=== PATIENT | female | born 1935 | race Two or more races ===

== ENCOUNTER 2018-10-29 10:42 | Emergency (ER) | payer MEDICARE, OTHER ==
[~2018-10-29] VITALS: Ht 144.8 cm; Wt 60.5 kg
[2018-10-29] MEDS ORDERED: VITAD1000 PO (10:50)
[2018-10-29] MEDS ORDERED: HYDR-4061 PO (10:50)
[2018-10-29] MEDS ORDERED: ATOR20TA86 PO (10:50)
[2018-10-29] MEDS ORDERED: ISOS5TAB5 PO (10:50)
[2018-10-29] MEDS ORDERED: GLIM4 PO (10:50)
[2018-10-29] MEDS ORDERED: INSU100I21 IM (10:50)
[2018-10-29] MEDS ORDERED: FERR-89 PO (10:50)
[2018-10-29] MEDS ORDERED: FURO20 PO (10:50)
[2018-10-29] MEDS ORDERED: GABA-531 PO (10:50)
[2018-10-29] MEDS ORDERED: SODI650T PO (10:50)
[2018-10-29 10:59] LABS: GLUCOSE,POINT OF CARE 203 MG/DL (70-110)
[2018-10-29] MEDS ORDERED: ACETAMINOPHEN 500 MG TABLET PO ONE (11:30)
[2018-10-29] MEDS ORDERED: BACITRACIN 0.9 GM PACKET OINTMENT TP ONE (11:30)
[2018-10-29 11:33] LABS: BASOPHILS % (AUTO) 0.6 % (0.0-2.0); HEMOGLOBIN 8.4 g/dL (12.0-16.0); LYMPHOCYTES # (AUTO) 1.5 K/uL (1.0-4.8); LYMPHOCYTES % (AUTO) 19.2 % (22.0-44.0); MEAN CORPUSCULAR HEMOGLOBIN 27.3 pg (26.0-34.0); MEAN CORPUSCULAR HGB CONC 32.3 G/dL (31.0-37.0); MEAN CORPUSCULAR VOLUME 84 fL (80-100); MONOCYTES # (AUTO) 0.5 K/uL (0.1-1.0); MONOCYTES % (AUTO) 6.8 % (2.0-9.0); NEUTROPHILS # (AUTO) 5.5 K/uL (1.8-7.7); NEUTROPHILS % (AUTO) 72.4 % (40.0-70.0); PLATELET COUNT (AUTO) 280 K/uL (150-450); RED BLOOD CELL COUNT(AUTO) 3.08 MIL/uL (4.00-5.20); RED CELL DISTRIBUTION WIDTH 17.4 % (11.5-14.5)
[2018-10-29 11:55] LABS: CALCIUM, TOTAL 8.8 mg/dL (8.8-10.5); CREATININE 1.24 mg/dL (0.60-1.30); POTASSIUM 5.5 mmol/L (3.5-5.1)
[2018-10-29 14:29] VITALS: BP 147/73
== END 2018-10-29 14:34 | disposition home or self-care (01) ==
LOC: EMS 10:43
DX: S63.610A Unspecified sprain of right index finger, initial encounter (principal); S00.83XA Contusion of other part of head, initial encounter; S50.312A Abrasion of left elbow, initial encounter; S00.31XA Abrasion of nose, initial encounter; I87.2 Venous insufficiency (chronic) (peripheral); E11.65 Type 2 diabetes mellitus with hyperglycemia; E11.22 Type 2 diabetes mellitus with diabetic chronic kidney disease; I12.9 Hypertensive chronic kidney disease with stage 1 through stage 4 chronic kidney disease, or unspecified chronic kidney disease; N18.9 Chronic kidney disease, unspecified; D63.1 Anemia in chronic kidney disease; M25.562 Pain in left knee; M25.561 Pain in right knee; M54.9 Dorsalgia, unspecified; E11.40 Type 2 diabetes mellitus with diabetic neuropathy, unspecified; E78.00 Pure hypercholesterolemia, unspecified; Z79.899 Other long term (current) drug therapy; W01.0XXA Fall on same level from slipping, tripping and stumbling without subsequent striking against object, initial encounter; Y93.89 Activity, other specified; Y92.89 Other specified places as the place of occurrence of the external cause; Y99.8 Other external cause status
CPT/HCPCS: 70450

== ENCOUNTER 2019-05-08 13:38 | Inpatient (IN) | payer MEDICARE, OTHER ==
[~2019-05-08] VITALS: Ht 152.4 cm; Wt 61.0 kg
[~2019-05-08 13:38] MED LIST: ATOR20TA86 PO; CHOL100018 PO; FERR-89 PO; FURO20 PO; GABA-531 PO; GLIM4 PO; HYDR-4061 PO; INSU100I21 SQ; ISOS5TAB5 PO; SODI650T PO
[2019-05-08] MEDS ORDERED: B CO1CAP6 PO (13:46)
[2019-05-08] MEDS ORDERED: ESOM20CA31 PO (13:50)
[2019-05-08] MEDS ORDERED: TRIA15CR49 TP (13:50)
[2019-05-08] MEDS ORDERED: LABE100T8 PO (13:50)
[2019-05-08] MEDS ORDERED: DOCU-275 PO (13:50)
[2019-05-08 14:05] LABS: GLUCOSE,POINT OF CARE > 600 MG/DL (70-110)
[2019-05-08] MEDS ORDERED: 0.9% SODIUM CHLORIDE 10 ML SYRINGE IVP PRN (14:15)
[2019-05-08] MEDS ORDERED: CefTRIAXone 1 GM/DEXTROSE 50 ML IV ONE (14:15)
[2019-05-08] MEDS ORDERED: AZITHROMYCIN 500 MG/NS 250 ML IV ONE (14:15)
[2019-05-08] MEDS ORDERED: CHOL100018 PO (14:18)
[2019-05-08] MEDS ORDERED: ISOS10TA16 PO (14:18)
[2019-05-08] MEDS ORDERED: ALBUTEROL SULFATE 5 MG/ML 20 ML NEB SOLN [BULK] NEB ONE (14:30)
[2019-05-08] MEDS ORDERED: IPRATROPIUM BROMIDE 0.5 MG/2.5 ML NEB SOLUTION NEB ONE (14:30)
[2019-05-08] MEDS ORDERED: NITROGLYCERIN 50 MG/D5% WATER 250 ML IV PRN (14:45)
[2019-05-08] MEDS ORDERED: FUROSEMIDE 40 MG/4 ML VIAL IVP ONE (14:45)
[2019-05-08 14:49] LABS: BASOPHILS % (AUTO) 0.4 % (0.0-2.0); EOSINOPHILS % (AUTO) 0 % (1.0-6.0); HEMATOCRIT 35.3 % (36-46); LYMPHOCYTES # (AUTO) 1.6 K/uL (1.0-4.8); LYMPHOCYTES % (AUTO) 11.4 % (22.0-44.0); MEAN CORPUSCULAR HGB CONC 31.2 G/dL (31.0-37.0); MEAN CORPUSCULAR VOLUME 90 fL (80-100); MONOCYTES # (AUTO) 0.9 K/uL (0.1-1.0); MONOCYTES % (AUTO) 6.5 % (2.0-9.0); NEUTROPHILS # (AUTO) 11.2 K/uL (1.8-7.7); NEUTROPHILS % (AUTO) 81.7 % (40.0-70.0); PLATELET COUNT (AUTO) 283 K/uL (150-450); RED BLOOD CELL COUNT(AUTO) 3.94 MIL/uL (4.00-5.20); RED CELL DISTRIBUTION WIDTH 14.9 % (11.5-14.5)
[2019-05-08 15:02] LABS: INR 1.1 (0.9-1.1); PROTHROMBIN TIME 10.9 SEC (9.4-11.6)
[2019-05-08 16:28] LABS: APPEARANCE,URINE CLOUDY (CLEAR); BILIRUBIN,URINE NEGATIVE (NEGATIVE); GLUCOSE, URINE (UA) >=1000 mg/dL (NEGATIVE); KETONES,URINE NEGATIVE (NEGATIVE); LEUKOCYTE ESTERASE ,URINE NEGATIVE (NEGATIVE); NITRATE,URINE NEGATIVE (NEGATIVE); OCCULT BLOOD,URINE SMALL (NEGATIVE); PROTEIN,URINE SEE CONFIRM (NEGATIVE)
[2019-05-08 16:29] LABS: SITE, BLOOD GAS LFT RADIAL; SOURCE, BLOOD GAS ARTERIAL
[2019-05-08 16:31] LABS: ABG BASE EXCESS -1.1 mmol/L (-2.0-3.0); ABG CARBOXYHEMOGLOBIN 1.1 % (0.0-1.5); ABG HCO3 23.3 mmol/L (22.0-26.0); ABG METHEMOGLOBIN 0.1 % (0.0-1.5); ABG OXYGEN CONTENT 15.6 mL/dL (15.0-23.0); ABG OXYHEMOGLOBIN 93.8 % (94.0-100.0); ABG PCO2 46 mmHg (35-45); ABG PH 7.343 (7.35-7.450); ABG TOTAL HEMOGLOBIN 11.8 G/dL (12.0-18.0); PO2, ARTERIAL BG 79.4 mmHg (71.0-79.0); TEMPERATURE, FAHRENHEIT, BG 99.4 FAHREN (96.0-98.6)
[2019-05-08 16:31] LABS: ALBUMIN 2.3 g/dL (3.4-5.0); BILIRUBIN,TOTAL 0.4 mg/dL (0.1-1.0); CALCIUM, TOTAL 8.7 mg/dL (8.8-10.5); CREATININE 1.86 mg/dL (0.60-1.30); POTASSIUM 5.4 mmol/L (3.5-5.1); TOTAL PROTEIN, SERUM 7.2 g/dL (6.4-8.2)
[2019-05-08 16:32] LABS: ABG A-A DIFF O2 65.3 mmHg (10-20.0); ABG OXYGEN SATURATION 94.9 % (95.0-98.0); O2 DEVICE,BLOOD GAS BIPAP (ROOM AIR); SPONTANEOUS VT, BG 430 ml
[2019-05-08 16:33] LABS: INSPIRATORY TIME, BG 1 SEC
[2019-05-08 16:43] LABS: SULFOSALICYLIC ACID,URINE 1+ (Negative)
[2019-05-08 16:45] LABS: INFLUENZA TYPE A NEGATIVE FOR TYPE A (NEGATIVE); INFLUENZA TYPE B NEGATIVE FOR TYPE B (NEGATIVE)
[2019-05-08] MEDS ORDERED: INSULIN REGULAR, HUMAN 100 UNITS/ML IVP ONE (16:45)
[2019-05-08] MEDS ORDERED: INSULIN REGULAR, HUMAN 100 UNITS in SODIUM CHLORIDE 0.9% 99 ML IV PRN ×2 (16:45)
[2019-05-08] MEDS ORDERED: SODIUM CHLORIDE 0.9% 1,000 ML IV ONE (16:45)
[2019-05-08 16:47] LABS: AMORPHOUS SEDIMENT,UR Moderate /LPF (None Seen); BACTERIA,URINE None Seen /HPF (None Seen); RBC,URINE 0-2 /HPF (0-2); SQUAMOUS EPITHELIAL CELL,UR Rare /LPF (None Seen); WBC,URINE None Seen /HPF (0-5)
[2019-05-08] MEDS ORDERED: ONDANSETRON HCL 4 MG/2 ML VIAL IVP PRN (17:00)
[2019-05-08] MEDS ORDERED: ACETAMINOPHEN 325 MG TABLET PO PRN (17:00)
[2019-05-08 18:02] LABS: GLUCOSE,POINT OF CARE 532 MG/DL (70-110)
[2019-05-08] MEDS ORDERED: ACETAMINOPHEN 500 MG TABLET PO ONE (18:30)
[2019-05-08 19:12] LABS: GLUCOSE,POINT OF CARE 485 MG/DL (70-110)
[2019-05-08 20:18] LABS: GLUCOSE,POINT OF CARE 417 MG/DL (70-110)
[2019-05-08 21:31] LABS: GLUCOSE,POINT OF CARE 363 MG/DL (70-110)
[2019-05-08 22:32] LABS: GLUCOSE,POINT OF CARE 311 MG/DL (70-110)
[2019-05-08] MEDS ORDERED: OxyCODONE HCL/ACETAMINOPHEN 5-325 MG TABLET PO PRN (23:00)
[2019-05-08 23:29] LABS: GLUCOSE,POINT OF CARE 229 MG/DL (70-110)
[2019-05-09 00:27] LABS: GLUCOSE,POINT OF CARE 230 MG/DL (70-110)
[2019-05-09 01:25] LABS: GLUCOSE,POINT OF CARE 171 MG/DL (70-110)
[2019-05-09] MEDS ORDERED: ONDANSETRON HCL 4 MG/2 ML VIAL IVP PRN (02:30)
[2019-05-09] MEDS ORDERED: OxyCODONE HCL/ACETAMINOPHEN 5-325 MG TABLET PO PRN ×2 (02:30)
[2019-05-09] MEDS ORDERED: MAGNESIUM HYDROXIDE SUSPENSION 30 ML UDCUP PO PRN (02:30)
[2019-05-09] MEDS ORDERED: DEXTROSE 50%-WATER 25 GM/50 ML SYRINGE IVP PRN ×2 (02:30)
[2019-05-09] MEDS ORDERED: 0.9% SODIUM CHLORIDE 10 ML SYRINGE IVP PRN (02:30)
[2019-05-09] MEDS ORDERED: INSULIN LISPRO 100 UNITS/ML SQ PRN (02:30)
[2019-05-09 02:35] LABS: GLUCOSE,POINT OF CARE 177 MG/DL (70-110)
[2019-05-09 03:16] LABS: GLUCOSE,POINT OF CARE 166 MG/DL (70-110)
[2019-05-09] MEDS: HEPARIN SODIUM,PORCINE 5,000 UNITS/ML VIAL SQ SCH ×3 (03:19→21:06)
[2019-05-09 04:24] LABS: GLUCOSE,POINT OF CARE 178 MG/DL (70-110)
[2019-05-09 05:22] LABS: GLUCOSE,POINT OF CARE 179 MG/DL (70-110)
[2019-05-09 06:22] LABS: GLUCOSE,POINT OF CARE 198 MG/DL (70-110)
[2019-05-09 07:33] LABS: GLUCOSE,POINT OF CARE 163 MG/DL (70-110)
[2019-05-09 08:30] LABS: CREATININE 1.6 mg/dL (0.60-1.30); POTASSIUM 4.4 mmol/L (3.5-5.1)
[2019-05-09 08:31] LABS: CALCIUM, TOTAL 8.3 mg/dL (8.8-10.5)
[2019-05-09 08:37] LABS: BILIRUBIN,TOTAL 0.3 mg/dL (0.1-1.0); TOTAL PROTEIN, SERUM 6.5 g/dL (6.4-8.2)
[2019-05-09] MEDS: LABETALOL HCL 100 MG TABLET PO SCH ×2 (08:47→21:06)
[2019-05-09] MEDS: DOCUSATE SODIUM 100 MG CAPSULE PO SCH ×2 (08:47→21:06)
[2019-05-09] MEDS: FAMOTIDINE 10 MG/ML 2 ML VIAL IVP SCH (08:48)
[2019-05-09] MEDS: ISOSORBIDE DINITRATE 10 MG TABLET PO SCH ×2 (08:48→21:06)
[2019-05-09] MEDS: ATORVASTATIN CALCIUM 20 MG TABLET PO SCH (08:48)
[2019-05-09] MEDS ORDERED: FAMOTIDINE 10 MG/ML 2 ML VIAL IVP SCH (09:00)
[2019-05-09] MEDS ORDERED: INSULIN DETEMIR SQ SCH (09:00)
[2019-05-09 09:26] LABS: GLUCOSE,POINT OF CARE 173 MG/DL (70-110)
[2019-05-09 11:09] LABS: SPECIMENTYPE,BODY FLUID PLEURAL
[2019-05-09 11:09] LABS: GLUCOSE,POINT OF CARE 148 MG/DL (70-110)
[2019-05-09 12:21] LABS: GLUCOSE,POINT OF CARE 167 MG/DL (70-110)
[2019-05-09 12:31] LABS: APPEARANCE,SPUN,BODY FLUID CLEAR (CLEAR); APPEARANCE,UNSPUN,BODY FLUID TURBID (CLEAR); COLOR,BODY FLUID YELLOW (LT YELLOW); TOTAL VOLUME,BODY FLUID 1000 mL; WBC, BODY FLUID 2020 /cu. mm.
[2019-05-09 12:32] LABS: BASOPHILS,BODY FLUID 0 %; EOSINOPHILS,BF (ANAL) 0 %; LYMPHOCYTES,BODY FLUID 21 %; MONOCYTES,BODY FLUID 0 %; NEUTROPHILS,BODY FLUID 79 %
[2019-05-09 14:02] LABS: GLUCOSE,POINT OF CARE 172 MG/DL (70-110)
[2019-05-09 14:45] VITALS: BP 152/61
[2019-05-09 16:05] VITALS: BP 152/66
[2019-05-09] MEDS ORDERED: SODIUM CHLORIDE 0.9% 250 ML IV ONE (16:12)
[2019-05-09] MEDS: CefTRIAXone 1 GM/DEXTROSE 50 ML IV SCH (16:26)
[2019-05-09] MEDS: AZITHROMYCIN 250 MG in SODIUM CHLORIDE 0.9% 150 ML IV SCH (17:32)
[2019-05-09] MEDS: INSULIN LISPRO 100 UNITS/ML SQ PRN ×2 (18:33→21:13)
[2019-05-09 19:50] LABS: GLUCOMETER DEV NAME(LOC) 5S.1; GLUCOSE,POINT OF CARE 230 MG/DL (70-110)
[2019-05-10 00:13] VITALS: BP 132/47
[2019-05-10] MEDS: ACETAMINOPHEN 325 MG TABLET PO PRN (02:14)
[2019-05-10 04:43] LABS: GLUCOMETER DEV NAME(LOC) 5S.1; GLUCOSE,POINT OF CARE 206 MG/DL (70-110)
[2019-05-10 04:55] VITALS: BP 144/56
[2019-05-10 06:21] LABS: BASOPHILS % (AUTO) 0.5 % (0.0-2.0); EOSINOPHILS % (AUTO) 0.3 % (1.0-6.0); HEMATOCRIT 31.4 % (36-46); HEMOGLOBIN 10.1 g/dL (12.0-16.0); LYMPHOCYTES # (AUTO) 1.7 K/uL (1.0-4.8); LYMPHOCYTES % (AUTO) 13.4 % (22.0-44.0); MEAN CORPUSCULAR HEMOGLOBIN 27.8 pg (26.0-34.0); MEAN CORPUSCULAR HGB CONC 32.3 G/dL (31.0-37.0); MEAN CORPUSCULAR VOLUME 86 fL (80-100); MONOCYTES # (AUTO) 0.7 K/uL (0.1-1.0); MONOCYTES % (AUTO) 5.2 % (2.0-9.0); NEUTROPHILS # (AUTO) 10.3 K/uL (1.8-7.7); NEUTROPHILS % (AUTO) 80.6 % (40.0-70.0); PLATELET COUNT (AUTO) 290 K/uL (150-450); RED BLOOD CELL COUNT(AUTO) 3.65 MIL/uL (4.00-5.20); RED CELL DISTRIBUTION WIDTH 14.4 % (11.5-14.5)
[2019-05-10 06:29] LABS: CALCIUM, TOTAL 8.3 mg/dL (8.8-10.5); CREATININE 1.53 mg/dL (0.60-1.30); POTASSIUM 4.4 mmol/L (3.5-5.1)
[2019-05-10] MEDS: INSULIN LISPRO 100 UNITS/ML SQ PRN ×4 (06:58→21:40)
[2019-05-10 08:21] VITALS: BP 152/73
[2019-05-10] MEDS: LABETALOL HCL 100 MG TABLET PO SCH ×2 (08:28→20:53)
[2019-05-10] MEDS: FAMOTIDINE 10 MG/ML 2 ML VIAL IVP SCH (08:28)
[2019-05-10] MEDS: DOCUSATE SODIUM 100 MG CAPSULE PO SCH ×2 (08:28→20:53)
[2019-05-10] MEDS: ATORVASTATIN CALCIUM 20 MG TABLET PO SCH (08:28)
[2019-05-10] MEDS: ISOSORBIDE DINITRATE 10 MG TABLET PO SCH ×2 (08:28→20:53)
[2019-05-10] MEDS: HEPARIN SODIUM,PORCINE 5,000 UNITS/ML VIAL SQ SCH ×2 (08:29→20:53)
[2019-05-10 10:34] VITALS: BP 133/47
[2019-05-10 11:52] LABS: GLUCOMETER DEV NAME(LOC) 5S.1; GLUCOSE,POINT OF CARE 203 MG/DL (70-110)
[2019-05-10 15:09] VITALS: BP 153/62
[2019-05-10] MEDS: CefTRIAXone 1 GM/DEXTROSE 50 ML IV SCH (15:27)
[2019-05-10] MEDS: AZITHROMYCIN 250 MG in SODIUM CHLORIDE 0.9% 150 ML IV SCH (16:32)
[2019-05-10 17:39] LABS: GLUCOMETER DEV NAME(LOC) 5N.2; GLUCOSE,POINT OF CARE 250 MG/DL (70-110)
[2019-05-10 17:39] LABS: GLUCOMETER DEV NAME(LOC) 5N.2; GLUCOSE,POINT OF CARE 297 MG/DL (70-110)
[2019-05-10 20:33] VITALS: BP 195/79
[2019-05-10] MEDS: BENZONATATE 100 MG CAPSULE PO SCH (20:53)
[2019-05-11 00:14] VITALS: BP 168/68
[2019-05-11] MEDS: ACETAMINOPHEN 325 MG TABLET PO PRN ×2 (02:30→21:37)
[2019-05-11 06:11] VITALS: BP 190/75
[2019-05-11] MEDS ORDERED: CloNIDine HCL 0.1 MG TABLET PO PRN (06:30)
[2019-05-11] MEDS: INSULIN LISPRO 100 UNITS/ML SQ PRN ×4 (06:42→22:33)
[2019-05-11 08:05] VITALS: BP 162/91
[2019-05-11] MEDS: ISOSORBIDE DINITRATE 10 MG TABLET PO SCH ×2 (08:09→21:30)
[2019-05-11] MEDS: FAMOTIDINE 10 MG/ML 2 ML VIAL IVP SCH (08:09)
[2019-05-11] MEDS: DOCUSATE SODIUM 100 MG CAPSULE PO SCH ×2 (08:09→21:29)
[2019-05-11] MEDS: BENZONATATE 100 MG CAPSULE PO SCH ×3 (08:09→21:30)
[2019-05-11] MEDS: ATORVASTATIN CALCIUM 20 MG TABLET PO SCH (08:09)
[2019-05-11] MEDS: LABETALOL HCL 100 MG TABLET PO SCH ×2 (08:09→21:30)
[2019-05-11] MEDS: HEPARIN SODIUM,PORCINE 5,000 UNITS/ML VIAL SQ SCH ×2 (08:10→21:30)
[2019-05-11] MEDS: GuaiFENesin/D-METHORPHAN [SUGAR-FREE] 200-20MG/10 ML SYRUP UDCUP PO PRN ×3 (11:23→21:37)
[2019-05-11] MEDS: AmLODIPine BESYLATE 5 MG TABLET PO SCH (11:23)
[2019-05-11] MEDS: BUMETANIDE 1 MG TABLET PO SCH ×2 (11:23→21:29)
[2019-05-11 11:31] VITALS: BP 156/66
[2019-05-11 12:55] LABS: GLUCOMETER DEV NAME(LOC) 5N.2; GLUCOSE,POINT OF CARE 229 MG/DL (70-110)
[2019-05-11 12:55] LABS: GLUCOMETER DEV NAME(LOC) 5N.2; GLUCOSE,POINT OF CARE 211 MG/DL (70-110)
[2019-05-11] MEDS: CefTRIAXone 1 GM/DEXTROSE 50 ML IV SCH (13:15)
[2019-05-11] MEDS: AZITHROMYCIN 250 MG in SODIUM CHLORIDE 0.9% 150 ML IV SCH (14:34)
[2019-05-11 15:26] VITALS: BP 146/61
[2019-05-11 18:32] LABS: GLUCOMETER DEV NAME(LOC) 5N.2; GLUCOSE,POINT OF CARE 294 MG/DL (70-110)
[2019-05-11 20:27] LABS: GLUCOMETER DEV NAME(LOC) 5S.1; GLUCOSE,POINT OF CARE 303 MG/DL (70-110)
[2019-05-11 20:50] VITALS: BP 158/83
[2019-05-11 23:14] LABS: GLUCOMETER DEV NAME(LOC) 5N.2; GLUCOSE,POINT OF CARE 231 MG/DL (70-110)
[2019-05-12 00:36] VITALS: BP 111/49
[2019-05-12 04:46] VITALS: BP 154/67
[2019-05-12] MEDS: INSULIN LISPRO 100 UNITS/ML SQ PRN ×4 (06:31→21:41)
[2019-05-12 07:48] VITALS: BP 154/66
[2019-05-12] MEDS: ISOSORBIDE DINITRATE 10 MG TABLET PO SCH ×2 (08:46→21:14)
[2019-05-12] MEDS: DOCUSATE SODIUM 100 MG CAPSULE PO SCH ×2 (08:46→21:15)
[2019-05-12] MEDS: BENZONATATE 100 MG CAPSULE PO SCH ×3 (08:46→21:14)
[2019-05-12] MEDS: LABETALOL HCL 100 MG TABLET PO SCH ×2 (08:46→21:14)
[2019-05-12] MEDS: HEPARIN SODIUM,PORCINE 5,000 UNITS/ML VIAL SQ SCH ×2 (08:46→21:14)
[2019-05-12] MEDS: ATORVASTATIN CALCIUM 20 MG TABLET PO SCH (08:46)
[2019-05-12] MEDS: BUMETANIDE 1 MG TABLET PO SCH ×2 (08:46→21:14)
[2019-05-12] MEDS: FAMOTIDINE 10 MG/ML 2 ML VIAL IVP SCH (08:47)
[2019-05-12 10:30] LABS: CALCIUM, TOTAL 8.6 mg/dL (8.8-10.5); CREATININE 1.45 mg/dL (0.60-1.30); POTASSIUM 4.7 mmol/L (3.5-5.1)
[2019-05-12 11:39] VITALS: BP 141/48
[2019-05-12 12:10] LABS: GLUCOMETER DEV NAME(LOC) 5N.2; GLUCOSE,POINT OF CARE 235 MG/DL (70-110)
[2019-05-12 12:10] LABS: GLUCOMETER DEV NAME(LOC) 5N.2; GLUCOSE,POINT OF CARE 180 MG/DL (70-110)
[2019-05-12] MEDS: AmLODIPine BESYLATE 5 MG TABLET PO SCH (12:20)
[2019-05-12] MEDS: CefTRIAXone 1 GM/DEXTROSE 50 ML IV SCH (14:04)
[2019-05-12] MEDS: AZITHROMYCIN 250 MG in SODIUM CHLORIDE 0.9% 150 ML IV SCH (14:50)
[2019-05-12 16:25] VITALS: BP 141/65
[2019-05-12 18:14] LABS: GLUCOMETER DEV NAME(LOC) 5N.2; GLUCOSE,POINT OF CARE 314 MG/DL (70-110)
[2019-05-12 19:57] VITALS: BP 142/71
[2019-05-12] MEDS: GuaiFENesin/D-METHORPHAN [SUGAR-FREE] 200-20MG/10 ML SYRUP UDCUP PO PRN (21:13)
[2019-05-12] MEDS: GABAPENTIN 300 MG CAPSULE PO SCH (21:15)
[2019-05-12] MEDS: INSULIN GLARGINE,HUM.REC.ANLOG 100 UNITS/ML SQ SCH (21:42)
[2019-05-13] VITALS (7 sets, daily range): BP systolic 116–154; BP diastolic 46–68
[2019-05-13] MEDS: INSULIN LISPRO 100 UNITS/ML SQ PRN ×4 (06:54→21:57)
[2019-05-13 06:58] LABS: BASOPHILS % (AUTO) 0.5 % (0.0-2.0); EOSINOPHILS % (AUTO) 0.9 % (1.0-6.0); HEMOGLOBIN 10.5 g/dL (12.0-16.0); LYMPHOCYTES # (AUTO) 1.5 K/uL (1.0-4.8); LYMPHOCYTES % (AUTO) 14.5 % (22.0-44.0); MEAN CORPUSCULAR HEMOGLOBIN 28.1 pg (26.0-34.0); MEAN CORPUSCULAR HGB CONC 32.6 G/dL (31.0-37.0); MEAN CORPUSCULAR VOLUME 86 fL (80-100); MONOCYTES # (AUTO) 0.8 K/uL (0.1-1.0); NEUTROPHILS # (AUTO) 7.9 K/uL (1.8-7.7); NEUTROPHILS % (AUTO) 76.1 % (40.0-70.0); PLATELET COUNT (AUTO) 352 K/uL (150-450); RED BLOOD CELL COUNT(AUTO) 3.72 MIL/uL (4.00-5.20); RED CELL DISTRIBUTION WIDTH 14.5 % (11.5-14.5)
[2019-05-13 07:16] LABS: ALBUMIN 1.7 g/dL (3.4-5.0); BILIRUBIN,TOTAL 0.2 mg/dL (0.1-1.0); CALCIUM, TOTAL 8.1 mg/dL (8.8-10.5); CREATININE 1.61 mg/dL (0.60-1.30); POTASSIUM 4.1 mmol/L (3.5-5.1); TOTAL PROTEIN, SERUM 6.5 g/dL (6.4-8.2)
[2019-05-13 08:04] LABS: GLUCOMETER DEV NAME(LOC) 5N.1; GLUCOSE,POINT OF CARE 399 MG/DL (70-110)
[2019-05-13 08:04] LABS: GLUCOMETER DEV NAME(LOC) 5N.1; GLUCOSE,POINT OF CARE 220 MG/DL (70-110)
[2019-05-13] MEDS: AmLODIPine BESYLATE 5 MG TABLET PO SCH (08:30)
[2019-05-13] MEDS: BENZONATATE 100 MG CAPSULE PO SCH ×3 (08:30→21:55)
[2019-05-13] MEDS: FAMOTIDINE 10 MG/ML 2 ML VIAL IVP SCH (08:30)
[2019-05-13] MEDS: GABAPENTIN 300 MG CAPSULE PO SCH ×3 (08:30→21:05)
[2019-05-13] MEDS: HEPARIN SODIUM,PORCINE 5,000 UNITS/ML VIAL SQ SCH ×2 (08:30→21:06)
[2019-05-13] MEDS: DOCUSATE SODIUM 100 MG CAPSULE PO SCH ×2 (08:30→21:05)
[2019-05-13] MEDS: BUMETANIDE 1 MG TABLET PO SCH ×2 (08:30→21:05)
[2019-05-13] MEDS: ATORVASTATIN CALCIUM 20 MG TABLET PO SCH (08:30)
[2019-05-13] MEDS: LABETALOL HCL 100 MG TABLET PO SCH ×2 (08:38→21:05)
[2019-05-13] MEDS: ISOSORBIDE DINITRATE 10 MG TABLET PO SCH ×2 (08:38→21:05)
[2019-05-13] MEDS: CefTRIAXone 1 GM/DEXTROSE 50 ML IV SCH (14:01)
[2019-05-13] MEDS: AZITHROMYCIN 250 MG in SODIUM CHLORIDE 0.9% 150 ML IV SCH (15:08)
[2019-05-13 19:03] LABS: GLUCOMETER DEV NAME(LOC) 5N.2; GLUCOSE,POINT OF CARE 258 MG/DL (70-110)
[2019-05-13] MEDS: INSULIN GLARGINE,HUM.REC.ANLOG 100 UNITS/ML SQ SCH (21:58)
[2019-05-13 22:21] LABS: GLUCOMETER DEV NAME(LOC) 5N.1; GLUCOSE,POINT OF CARE 222 MG/DL (70-110)
[2019-05-13 22:22] LABS: GLUCOMETER DEV NAME(LOC) 5N.1; GLUCOSE,POINT OF CARE 368 MG/DL (70-110)
[2019-05-14 05:40] VITALS: BP 149/65
[2019-05-14] MEDS: INSULIN LISPRO 100 UNITS/ML SQ PRN ×4 (05:55→21:23)
[2019-05-14 06:49] LABS: BASOPHILS % (AUTO) 0.6 % (0.0-2.0); EOSINOPHILS % (AUTO) 1.2 % (1.0-6.0); HEMATOCRIT 30.9 % (36-46); HEMOGLOBIN 10.3 g/dL (12.0-16.0); LYMPHOCYTES # (AUTO) 1.5 K/uL (1.0-4.8); LYMPHOCYTES % (AUTO) 13.8 % (22.0-44.0); MEAN CORPUSCULAR HEMOGLOBIN 28.3 pg (26.0-34.0); MEAN CORPUSCULAR HGB CONC 33.2 G/dL (31.0-37.0); MEAN CORPUSCULAR VOLUME 85 fL (80-100); MONOCYTES # (AUTO) 0.8 K/uL (0.1-1.0); MONOCYTES % (AUTO) 7.5 % (2.0-9.0); NEUTROPHILS # (AUTO) 8.4 K/uL (1.8-7.7); NEUTROPHILS % (AUTO) 76.9 % (40.0-70.0); PLATELET COUNT (AUTO) 359 K/uL (150-450); RED BLOOD CELL COUNT(AUTO) 3.63 MIL/uL (4.00-5.20); RED CELL DISTRIBUTION WIDTH 14.4 % (11.5-14.5)
[2019-05-14 06:57] LABS: GLUCOMETER DEV NAME(LOC) 5N.1; GLUCOSE,POINT OF CARE 165 MG/DL (70-110)
[2019-05-14 06:58] LABS: GLUCOMETER DEV NAME(LOC) 5N.2; GLUCOSE,POINT OF CARE 140 MG/DL (70-110)
[2019-05-14 07:13] LABS: ALBUMIN 1.7 g/dL (3.4-5.0); BILIRUBIN,TOTAL 0.2 mg/dL (0.1-1.0); CALCIUM, TOTAL 8.2 mg/dL (8.8-10.5); CREATININE 1.66 mg/dL (0.60-1.30); POTASSIUM 4.3 mmol/L (3.5-5.1); TOTAL PROTEIN, SERUM 6.4 g/dL (6.4-8.2)
[2019-05-14 08:11] VITALS: BP 135/50
[2019-05-14] MEDS: BENZONATATE 100 MG CAPSULE PO SCH ×3 (08:20→21:16)
[2019-05-14] MEDS: FAMOTIDINE 10 MG/ML 2 ML VIAL IVP SCH (08:20)
[2019-05-14] MEDS: DOCUSATE SODIUM 100 MG CAPSULE PO SCH ×2 (08:20→21:15)
[2019-05-14] MEDS: HEPARIN SODIUM,PORCINE 5,000 UNITS/ML VIAL SQ SCH ×2 (08:20→21:17)
[2019-05-14] MEDS: BUMETANIDE 1 MG TABLET PO SCH (08:20)
[2019-05-14] MEDS: GABAPENTIN 300 MG CAPSULE PO SCH ×3 (08:20→21:15)
[2019-05-14] MEDS: ATORVASTATIN CALCIUM 20 MG TABLET PO SCH (08:20)
[2019-05-14] MEDS: AmLODIPine BESYLATE 5 MG TABLET PO SCH (08:20)
[2019-05-14] MEDS: ISOSORBIDE DINITRATE 10 MG TABLET PO SCH ×2 (08:20→21:16)
[2019-05-14] MEDS: LABETALOL HCL 100 MG TABLET PO SCH ×2 (08:29→21:16)
[2019-05-14 12:12] VITALS: BP 141/58
[2019-05-14 12:34] LABS: GLUCOMETER DEV NAME(LOC) 5N.2; GLUCOSE,POINT OF CARE 231 MG/DL (70-110)
[2019-05-14] MEDS ORDERED: SODIUM CHLORIDE 0.9% 250 ML IV ONE (13:01)
[2019-05-14] MEDS: CefTRIAXone 1 GM/DEXTROSE 50 ML IV SCH (13:09)
[2019-05-14] MEDS: AZITHROMYCIN 250 MG in SODIUM CHLORIDE 0.9% 150 ML IV SCH (14:54)
[2019-05-14 16:29] VITALS: BP 144/58
[2019-05-14] MEDS: INSULIN GLARGINE,HUM.REC.ANLOG 100 UNITS/ML SQ SCH (21:22)
[2019-05-14 21:44] VITALS: BP 136/45
[2019-05-15 01:00] VITALS: BP 128/63
[2019-05-15 02:00] LABS: GLUCOMETER DEV NAME(LOC) 5N.1; GLUCOSE,POINT OF CARE 283 MG/DL (70-110)
[2019-05-15 02:00] LABS: GLUCOMETER DEV NAME(LOC) 5N.1; GLUCOSE,POINT OF CARE 321 MG/DL (70-110)
[2019-05-15 05:08] VITALS: BP 135/66
[2019-05-15] MEDS: INSULIN LISPRO 100 UNITS/ML SQ PRN ×3 (05:58→21:41)
[2019-05-15 06:57] LABS: GLUCOMETER DEV NAME(LOC) 5N.2; GLUCOSE,POINT OF CARE 171 MG/DL (70-110)
[2019-05-15 07:03] LABS: BASOPHILS % (AUTO) 0.3 % (0.0-2.0); EOSINOPHILS % (AUTO) 0.9 % (1.0-6.0); HEMOGLOBIN 9.9 g/dL (12.0-16.0); LYMPHOCYTES # (AUTO) 1.8 K/uL (1.0-4.8); LYMPHOCYTES % (AUTO) 15.3 % (22.0-44.0); MEAN CORPUSCULAR HEMOGLOBIN 28.3 pg (26.0-34.0); MEAN CORPUSCULAR HGB CONC 33.1 G/dL (31.0-37.0); MEAN CORPUSCULAR VOLUME 86 fL (80-100); MONOCYTES # (AUTO) 0.7 K/uL (0.1-1.0); MONOCYTES % (AUTO) 6.1 % (2.0-9.0); NEUTROPHILS # (AUTO) 9.2 K/uL (1.8-7.7); NEUTROPHILS % (AUTO) 77.4 % (40.0-70.0); PLATELET COUNT (AUTO) 400 K/uL (150-450); RED BLOOD CELL COUNT(AUTO) 3.51 MIL/uL (4.00-5.20); RED CELL DISTRIBUTION WIDTH 14.4 % (11.5-14.5)
[2019-05-15 07:17] LABS: ALBUMIN 1.8 g/dL (3.4-5.0); BILIRUBIN,TOTAL 0.2 mg/dL (0.1-1.0); CALCIUM, TOTAL 8.2 mg/dL (8.8-10.5); CREATININE 1.66 mg/dL (0.60-1.30); POTASSIUM 4.4 mmol/L (3.5-5.1); TOTAL PROTEIN, SERUM 6.7 g/dL (6.4-8.2)
[2019-05-15 08:45] VITALS: BP 141/73
[2019-05-15] MEDS: HEPARIN SODIUM,PORCINE 5,000 UNITS/ML VIAL SQ SCH ×2 (09:00→21:39)
[2019-05-15] MEDS: ATORVASTATIN CALCIUM 20 MG TABLET PO SCH (09:12)
[2019-05-15] MEDS: LABETALOL HCL 100 MG TABLET PO SCH ×2 (09:12→21:39)
[2019-05-15] MEDS: GABAPENTIN 300 MG CAPSULE PO SCH ×3 (09:12→21:39)
[2019-05-15] MEDS: AmLODIPine BESYLATE 5 MG TABLET PO SCH (09:12)
[2019-05-15] MEDS: DOCUSATE SODIUM 100 MG CAPSULE PO SCH ×2 (09:13→21:38)
[2019-05-15] MEDS: BENZONATATE 100 MG CAPSULE PO SCH ×3 (09:14→21:39)
[2019-05-15] MEDS: ISOSORBIDE DINITRATE 10 MG TABLET PO SCH ×2 (09:22→21:39)
[2019-05-15] MEDS: FAMOTIDINE 10 MG/ML 2 ML VIAL IVP SCH (09:45)
[2019-05-15 11:40] LABS: GLUCOMETER DEV NAME(LOC) 5N.1; GLUCOSE,POINT OF CARE 144 MG/DL (70-110)
[2019-05-15 12:02] VITALS: BP 105/45
[2019-05-15] MEDS ORDERED: MAGNESIUM CITRATE 300 ML ORAL SOLUTION PO ONE (14:30)
[2019-05-15 15:46] LABS: SPECIMENTYPE,BODY FLUID THORACENTESIS
[2019-05-15] MEDS: CefTRIAXone 1 GM/DEXTROSE 50 ML IV SCH (15:52)
[2019-05-15] MEDS: AZITHROMYCIN 250 MG in SODIUM CHLORIDE 0.9% 150 ML IV SCH (16:55)
[2019-05-15 17:19] VITALS: BP 134/49
[2019-05-15 17:47] LABS: GLUCOMETER DEV NAME(LOC) 5N.1; GLUCOSE,POINT OF CARE 326 MG/DL (70-110)
[2019-05-15 18:39] LABS: APPEARANCE,SPUN,BODY FLUID CLEAR (CLEAR); APPEARANCE,UNSPUN,BODY FLUID CLOUDY (CLEAR); BASOPHILS,BODY FLUID 0 %; COLOR,BODY FLUID LT YELLOW (LT YELLOW); EOSINOPHILS,BF (ANAL) 0 %; LYMPHOCYTES,BODY FLUID 12 %; MONOCYTES,BODY FLUID 0 %; NEUTROPHILS,BODY FLUID 88 %; TOTAL VOLUME,BODY FLUID 80 mL; WBC, BODY FLUID 1412 /cu. mm.
[2019-05-15 20:01] VITALS: BP 134/48
[2019-05-15] MEDS: INSULIN GLARGINE,HUM.REC.ANLOG 100 UNITS/ML SQ SCH (21:40)
[2019-05-15 23:09] LABS: GLUCOMETER DEV NAME(LOC) 5N.1; GLUCOSE,POINT OF CARE 323 MG/DL (70-110)
[2019-05-16 00:30] VITALS: BP 138/56
[2019-05-16 05:19] VITALS: BP 135/60
[2019-05-16 07:00] LABS: BASOPHILS % (AUTO) 0.6 % (0.0-2.0); EOSINOPHILS % (AUTO) 0.9 % (1.0-6.0); HEMATOCRIT 30.3 % (36-46); HEMOGLOBIN 9.8 g/dL (12.0-16.0); LYMPHOCYTES # (AUTO) 1.6 K/uL (1.0-4.8); LYMPHOCYTES % (AUTO) 14.9 % (22.0-44.0); MEAN CORPUSCULAR HEMOGLOBIN 27.6 pg (26.0-34.0); MEAN CORPUSCULAR HGB CONC 32.3 G/dL (31.0-37.0); MEAN CORPUSCULAR VOLUME 86 fL (80-100); MONOCYTES # (AUTO) 0.6 K/uL (0.1-1.0); MONOCYTES % (AUTO) 6.1 % (2.0-9.0); NEUTROPHILS # (AUTO) 8.1 K/uL (1.8-7.7); NEUTROPHILS % (AUTO) 77.5 % (40.0-70.0); PLATELET COUNT (AUTO) 382 K/uL (150-450); RED BLOOD CELL COUNT(AUTO) 3.54 MIL/uL (4.00-5.20); RED CELL DISTRIBUTION WIDTH 14.8 % (11.5-14.5)
[2019-05-16 07:04] VITALS: BP 147/61
[2019-05-16 07:26] LABS: ALBUMIN 1.8 g/dL (3.4-5.0); BILIRUBIN,TOTAL 0.2 mg/dL (0.1-1.0); CALCIUM, TOTAL 8.3 mg/dL (8.8-10.5); CREATININE 1.76 mg/dL (0.60-1.30); POTASSIUM 5.6 mmol/L (3.5-5.1); TOTAL PROTEIN, SERUM 6.6 g/dL (6.4-8.2)
[2019-05-16] MEDS ORDERED: SODIUM POLYSTYRENE SULFONATE 15 GM/60 ML SUSPENSION BOTTLE PO ONE (08:45)
[2019-05-16] MEDS ORDERED: AmLODIPine BESYLATE 2.5 MG TABLET PO SCH (09:00)
[2019-05-16] MEDS: GABAPENTIN 300 MG CAPSULE PO SCH ×2 (09:06→17:31)
[2019-05-16] MEDS: LABETALOL HCL 100 MG TABLET PO SCH (09:06)
[2019-05-16] MEDS: BENZONATATE 100 MG CAPSULE PO SCH ×2 (09:06→17:31)
[2019-05-16] MEDS: DOCUSATE SODIUM 100 MG CAPSULE PO SCH (09:06)
[2019-05-16] MEDS: ATORVASTATIN CALCIUM 20 MG TABLET PO SCH (09:07)
[2019-05-16] MEDS: ISOSORBIDE DINITRATE 10 MG TABLET PO SCH (09:07)
[2019-05-16] MEDS: HEPARIN SODIUM,PORCINE 5,000 UNITS/ML VIAL SQ SCH (09:07)
[2019-05-16] MEDS: FAMOTIDINE 10 MG/ML 2 ML VIAL IVP SCH (09:07)
[2019-05-16 11:33] VITALS: BP 135/64
[2019-05-16] MEDS: INSULIN LISPRO 100 UNITS/ML SQ PRN ×2 (12:02→17:49)
[2019-05-16] MEDS: CefTRIAXone 1 GM/DEXTROSE 50 ML IV SCH (17:32)
[2019-05-16] MEDS ORDERED: AMOX-429 PO (18:42)
[2019-05-16] MEDS ORDERED: AMLO2.5T29 PO (18:42)
[2019-05-16] MEDS ORDERED: LABE100T5 PO (18:42)
[2019-05-16] MEDS ORDERED: DOCU-275 PO (18:42)
[2019-05-16] MEDS ORDERED: BENZ100C68 PO (18:42)
[2019-05-16] MEDS ORDERED: INSU100I21 SQ (18:42)
[2019-05-16] MEDS ORDERED: GUAIFDM PO (18:42)
[2019-05-17 00:53] LABS: GLUCOMETER DEV NAME(LOC) 5N.1; GLUCOSE,POINT OF CARE 225 MG/DL (70-110)
[2019-05-17 04:33] LABS: GLUCOMETER DEV NAME(LOC) 5N.2; GLUCOSE,POINT OF CARE 261 MG/DL (70-110)
[2019-05-17 04:33] LABS: GLUCOMETER DEV NAME(LOC) 5N.2; GLUCOSE,POINT OF CARE 241 MG/DL (70-110)
== END 2019-05-16 19:05 | disposition home or self-care (01) | DRG 871 ==
LOC: EMS 13:39 → 5N 05-09 14:25
PROVIDERS: ADMIT Internal Medicine; ATTEND Internal Medicine
PROC: 0W993ZZ Drainage of Right Pleural Cavity, Percutaneous Approach (ICD-10-PCS; principal; 2019-05-09)
PROC: 5A09357 Assistance with Respiratory Ventilation, Less than 24 Consecutive Hours, Continuous Positive Airway Pressure (ICD-10-PCS; 2019-05-09)
PROC: 0W993ZZ Drainage of Right Pleural Cavity, Percutaneous Approach (ICD-10-PCS; 2019-05-15)
DX: A41.9 Sepsis, unspecified organism (principal); E11.00 Type 2 diabetes mellitus with hyperosmolarity without nonketotic hyperglycemic-hyperosmolar coma (NKHHC); J96.01 Acute respiratory failure with hypoxia; E43 Unspecified severe protein-calorie malnutrition; E11.10 Type 2 diabetes mellitus with ketoacidosis without coma; J69.0 Pneumonitis due to inhalation of food and vomit; N17.9 Acute kidney failure, unspecified; J91.8 Pleural effusion in other conditions classified elsewhere; E87.1 Hypo-osmolality and hyponatremia; I13.0 Hypertensive heart and chronic kidney disease with heart failure and stage 1 through stage 4 chronic kidney disease, or unspecified chronic kidney disease; N18.4 Chronic kidney disease, stage 4 (severe); Z68.32 Body mass index [BMI] 32.0-32.9, adult; D63.1 Anemia in chronic kidney disease; E11.22 Type 2 diabetes mellitus with diabetic chronic kidney disease; E11.40 Type 2 diabetes mellitus with diabetic neuropathy, unspecified; E78.00 Pure hypercholesterolemia, unspecified; E78.5 Hyperlipidemia, unspecified; E86.0 Dehydration; E87.5 Hyperkalemia; I50.9 Heart failure, unspecified; K59.00 Constipation, unspecified; N05.9 Unspecified nephritic syndrome with unspecified morphologic changes; Z79.4 Long term (current) use of insulin; Z82.49 Family history of ischemic heart disease and other diseases of the circulatory system; Z87.891 Personal history of nicotine dependence; Z90.49 Acquired absence of other specified parts of digestive tract; Z91.14 Patient's other noncompliance with medication regimen; Z79.899 Other long term (current) drug therapy
CPT/HCPCS: 32555; 36600; 71250; 76942; 82465; 82805; 82945; 83036; 83605; 83615; 83986; 84145; 84155; 84157; 87015; 87040; 87070; 87101; 87205; 87206; 87804; 88108; 89051; 93005; 93306; 94640; 94660; 97110; 97116; 97162; 97165; 97530; 97535; 99291; J0456; J0696; J1644; J1815; J1940; J3490; J7030; J7050